=== PATIENT | male | born 1965 | race Caucasian/White ===

== ENCOUNTER 2019-11-13 11:05 | Emergency (ER) | payer MEDICAID ==
[~2019-11-13] VITALS: Ht 180.3 cm; Wt 87.3 kg
[~2019-11-13 11:05] MED LIST: HYDR-3965 PO; IBUP-1984 PO
[2019-11-13 11:36] VITALS: BP 109/68
[2019-11-13] MEDS ORDERED: orphenadrine citrate 60mg/2ml inj. IM ONE (14:55)
[2019-11-13] MEDS ORDERED: CYCL-1 PO (16:17)
== END 2019-11-13 16:40 | disposition home or self-care (01) ==
LOC: ER 11:05
DX: S39.012A Strain of muscle, fascia and tendon of lower back, initial encounter (principal); G89.29 Other chronic pain; Z79.899 Other long term (current) drug therapy; X58.XXXA Exposure to other specified factors, initial encounter; Y93.89 Activity, other specified; Y92.89 Other specified places as the place of occurrence of the external cause; Y99.8 Other external cause status
CPT/HCPCS: 72100; 96372; 99284; J2360